=== PATIENT | female | born 1980 | race Caucasian/White ===

== ENCOUNTER 2017-02-19 08:49 | Outpatient (CLI) ==
[2016-04-09 19:28] VITALS: BMI 18.4
--- NOTE | 2017-02-19 10:58 | US ---
EXAM: Right breast ultrasound. History: Right breast palpable abnormality. Comparison: Bilateral diagnostic mammogram 02/19/2017 Technique: Multiple sonographic images through the right breast were obtained. Color duplex Dopple r was used to interrogate vascular flow. Findings: No masses, cysts or fluid collections identified. Impression: No sonographic evidence for malignancy. Recommend routine screening mammography at 42 y ears. BIRADS 2
--- NOTE | 2017-02-21 15:38 | MAMMO ---
EXAM: Bilateral digital diagnostic mammogram History: Right breast mass. Technique: MLO and CC views of bilateral breasts demonstrate heterogeneously dense breast parenchym a which can obscure small lesions. There are no dominant masses, no suspicious microcalcifications and no architectural distortions Impression: Although no mammographic abnormalities identified to correlate with the palpable event, recommend further evaluation with right breast ultrasound. BIRADS 0
== END 2017-02-19 08:50 ==
LOC: RAD 08:49
PROVIDERS: ATTEND Advanced Practice Midwife
DX: N63 Unspecified lump in breast (principal)

== ENCOUNTER 2017-05-23 11:26 | Emergency (ER) ==
[2017-05-23 11:34] VITALS: BP 109/74; TEMP 98.4; BMI 15.5
[2017-05-23 11:45] LABS: BILIRUBIN,URINE 1+ (NEGATIVE); KETONES,URINE Trace (NEGATIVE); LEUKOCYTE ESTERASE ,URINE Negative (NEGATIVE); NITRITE,URINE Positive (NEGATIVE); PH,URINE 5.5 (5-9); PROTEIN,URINE 1+ (NEGATIVE); URINE, BLOOD 2+ (NEGATIVE)
[2017-05-23 11:46] LABS: ADD URINE MICROSCOPIC YES
--- NOTE | 2017-05-23 11:53 | ED.PDOC ---
General ED Provider: Dr. KARUNA TRIPATHI JR Chief Complaint: Kidney Stone Stated Complaint: onset pain 2 days ago--pain to both sides posterior back-- urine is darker--hx kidney stone--8 yrs ago--sx similar[End]98.4 781 20 10 04/05 Time Seen by Physician: 11:53 Mode of Arrival: Walk-In Information Source: Patient Exam Limitations: No limitations Nursing and Triage Documentation Reviewed and Agree: No Review of Systems - Review Of Systems Constitutional: Reports: Malaise Eyes: Reports: No symptoms Ears, Nose, Mouth, Throat: Reports: No symptoms Respiratory: Reports: No symptoms Cardiac: Reports: No symptoms GI: Reports: No symptoms : Reports: Flank pain, Hematuria, Pain Musculoskeletal: Reports: Back pain, Muscle pain Skin: Reports: No symptoms Neurological: Reports: No symptoms Endocrine: Reports: No symptoms Hematologic/Lymphatic: Reports: No symptoms All Other Systems: Other Past Medical History - Past Medical History Previously Healthy: Yes Endocrine: Reports: None Cardiovascular: Reports: None Respiratory: Reports: None Hematological: Reports: None Gastrointestinal: Reports: None Genitourinary: Reports: None Neuro/Psych: Reports: None Musculoskeletal: Reports: None Cancer: Reports: None Last Menstrual Period: 1 month ago--has iud - Surgical History General Surgical History: Reports: None - Family History Family History: Reports: None - Social History Smoking Status: Former smoker Hx Substance Use: No Alcohol Screening: None Physical Exam - Physical Exam Appearance: Well-appearing, Thin Ill-appearing: Moderate Pain Distress: Moderate Eyes: MATILDE, EOMI, Conjunctiva clear ENT: Ears normal, Nose normal, Oropharynx normal Neck: Supple Respiratory: Airway patent, Breath sounds clear, Breath sounds equal, Respirations nonlabored Cardiovascular: RRR, Pulses normal, No rub, No murmur GI/: Soft, Nontender, No masses, Bowel sounds normal, No Organomegaly Musculoskeletal: Normal strength, ROM intact, No edema, No calf tenderness Skin: Warm, Dry, Normal color Neurological: Sensation intact, Motor intact, Reflexes intact, Cranial nerves intact, Alert, Oriented Psychiatric: Affect appropriate Critical Care Note - Critical Care Note Total Time (mins): 0 Course - Course Hematology/Chemistry: 05/23/17 11:50 05/23/17 11:50 Orders, Labs, Meds: Lab Review 05/23/17 05/23/17 11:40 11:50 WBC 6.69 RBC 4.16 L Hgb 12.5 Hct 36.8 L MCV 88.5 MCH 30.0 MCHC 34.0 RDW Coeff of [place] 12.5 Plt Count 217 Immature Gran % (Auto) 0.3 Neut % (Auto) 55.8 Lymph % (Auto) 34.7 Mckean % (Auto) 6.0 Eos % (Auto) 2.2 Baso % (Auto) 1.0 Immature Gran # (Auto) 0.0 Neut # 3.7 Lymph # 2.3 Mckean # 0.4 Eos # 0.2 Baso # 0.1 Sodium 142 Potassium 3.4 L Chloride 105 Carbon Dioxide 26 Anion Gap 14.4 BUN 10 Creatinine 0.74 Estimated GFR (MDRD) 89.00 BUN/Creatinine Ratio 13.51 Glucose 84 Calcium 9.5 Total Bilirubin 0.48 AST 10 L ALT 8 L Alkaline Phosphatase 63 Total Protein 6.3 L Albumin 3.9 Globulin 2.4 Albumin/Globulin Ratio 1.63 Amylase 27 Lipase 9 Urine Color Yellow Urine Clarity Clear Urine pH 5.5 Ur Specific [place] >=1.030 Urine Protein 1+ Urine Glucose (UA) Negative Urine Ketones Trace Urine Blood 2+ Urine Nitrite Positive Urine Bilirubin 1+ Urine Urobilinogen 1.0 Ur Leukocyte Esterase Negative Urine Microscopic RBC 5-10 Urine Microscopic WBC 5-10 Ur Squamous Epith Cells 5-10 Urine Bacteria 4+ Urine Mucus Trace Urine Test Negative H. pylori IgG Antibody Negative Orders Category Date Time Status Strain Urine [ED STRAIN URINE] .ONCE EMERGENCY 05/23/17 11:53 Active AMYLASE Stat LAB 05/23/17 11:50 Completed CBC W/ AUTO DIFF Stat LAB 05/23/17 11:50 Completed COMPREHENSIVE METABOLIC PANEL Stat LAB 05/23/17 11:50 Completed H. PYLORI SCREEN Stat LAB 05/23/17 11:50 Completed LIPASE Stat LAB 05/23/17 11:50 Completed UA [URINALYSIS C & S IF INDICATED] Stat LAB 05/23/17 11:40 Completed URINE CULTURE Stat LAB 05/23/17 11:40 Received URINE Stat LAB 05/23/17 11:[address] ABDOMEN/PELVIS WO CONTRAST Stat RADS 05/23/17 11:47 Completed Vital Signs: Temp Pulse Resp BP Pulse Ox 05/23/17 11:27 98.4 F 81 20 109/74 100 Departure - Departure Time of Disposition: 12:48 Disposition: HOME SELF-CARE Discharge Problem: Back pain Qualifiers: Back pain location: low back pain Chronicity: acute Back pain laterality: right Sciatica presence: without sciatica Qualifier Code: (M54.5) Low back pain Instructions: How to Strain Your Urine (ED) Condition: Good Pt referred to PMD for follow-up: Yes Additional Instructions: back strain- avoid lifting over 10 pounds for three days recheck PMD one week may follow with [facility] naprosyn and tylenol for pain do not mix MSAIDS(aspirin Advil Aleve) Prescriptions: Naproxen [Naprosyn] 500 mg PO Q12HR PRN #30 tablet PRN Reason: PAIN Allergies/Adverse Reactions: Allergies No Known Allergies Allergy (Verified 05/23/17 11:34) Home Medications: Ambulatory Orders Naproxen [Naprosyn] 500 mg PO Q12HR PRN #30 tablet 05/23/17
[2017-05-23 11:54] LABS: BACTERIA,URINE 4+ (NOT PRESENT)
[2017-05-23 11:55] LABS: URINE PREGNANCY INTERNAL QC INTERNAL QC VALID
[2017-05-23 12:00] LABS: BASOPHILS # (AUTO) 0.1 K/uL (0-0.2); EOSINOPHILS # (AUTO) 0.2 K/ul (0.0-0.7); EOSINOPHILS % (AUTO) 2.2 % (0.0-7.0); HEMATOCRIT 36.8 % (37.0-47.0); HEMOGLOBIN 12.5 g/dl (12.0-16.0); IMMATURE GRANULOCYTE % (AUTO) 0.3 % (0.0-5.0); LYMPHOCYTES # (AUTO) 2.3 K/uL (0.60-3.4); LYMPHOCYTES % (AUTO) 34.7 (10.0-50.0); MEAN CORPUSCULAR VOLUME 88.5 fl (81.0-99.0); MONOCYTES # (AUTO) 0.4 K/uL (0.4-2.0); NEUTROPHILS # (AUTO) 3.7 K/ul (2.0-6.9); NEUTROPHILS % (AUTO) 55.8; PLATELET COUNT 217 10^3/uL (140-440); RED BLOOD COUNT 4.16 10^6/ul (4.20-5.40); WHITE BLOOD COUNT 6.69 K/ul (4.6-10.2)
[2017-05-23 12:14] LABS: H. PYLORI ANTIBODY NEGATIVE (NEGATIVE); H.PYLORI INTERNAL QC INTERNAL QC VALID
[2017-05-23 12:22] LABS: ALBUMIN 3.9 g/dL (3.4-5.0); ALBUMIN/GLOBULIN RATIO 1.63; ANION GAP 14.4; BILIRUBIN,TOTAL 0.48 mg/dL (0.00-1.20); BUN/CREATININE RATIO 13.51; CALCIUM 9.5 mg/dL (8.2-10.2); CREATININE 0.74 mg/dL (0.60-1.30); POTASSIUM 3.4 mmol/L (3.5-5.10); TOTAL PROTEIN 6.3 g/dL (6.4-8.2)
--- NOTE | 2017-05-23 12:38 | CT ---
EXAM: CT of the abdomen pelvis without contrast History: Abdominal and flank pain, hematuria. Comparison: CT abdomen pelvis 01/15/2014 Technique: Multiplanar CT images through the abdomen pelvis were obtained without the administratio n of IV contrast Findings: Lung bases are free of consolidation. No acute osseous abnormalities. No discrete gallstones identified by CT. No focal liver or splenic lesions. 3 mm left renal calcul us. 1 mm punctate right renal calculus. Stable small right renal cyst. No hydronephrosis. No per inephric stranding. No peripancreatic inflammation. Adrenal glands are unremarkable. No bowel obs truction. No ureteral calculi. Scattered colonic stool. Bladder is not well distended. Intrauter ine device is again seen in place. No perirectal inflammation. The appendix is not dilated or infl marce. Impression: 1. No acute intra-abdominal or pelvic process. 2. Nonobstructing bilateral nephrolithiasis. 3. Stable small simple appearing right renal cyst.
== END 2017-05-23 13:11 | disposition home or self-care (01) ==
LOC: ED 11:26
DX: N39.0 Urinary tract infection, site not specified (principal); B96.20 Unspecified Escherichia coli [E. coli] as the cause of diseases classified elsewhere; R31.9 Hematuria, unspecified
CPT/HCPCS: 36415; 80053; 81001; 81025; 82150; 83690; 85025; 86677; 87086; 87186; 99283

== ENCOUNTER 2017-07-22 08:28 | Emergency (ER) ==
[2017-07-22 08:29] VITALS: BMI 15.5
[2017-07-22] MEDS ORDERED: DUONEB NEB STA (08:48)
[2017-07-22] MEDS ORDERED: PREDNISONE PO STA (08:48)
[2017-07-22] MEDS ORDERED: ZITHROMAX PO STA (08:48)
[2017-07-22 08:51] VITALS: BP 119/87; TEMP 98.1
--- NOTE | 2017-07-22 08:53 | ED.PDOC ---
General ED Provider: Dr. ANALISA GARZON Chief Complaint: Respiratory Complaint Stated Complaint: cough, wheez Time Seen by Physician: 09:00 Information Source: Patient Exam Limitations: No limitations Nursing and Triage Documentation Reviewed and Agree: Yes Review of Systems - Review Of Systems Constitutional: Reports: Malaise, Loss of appetite Eyes: Reports: No symptoms Ears, Nose, Mouth, Throat: Reports: No symptoms Respiratory: Reports: Cough, Wheezing Cardiac: Reports: No symptoms GI: Reports: No symptoms : Reports: No symptoms Musculoskeletal: Reports: No symptoms Skin: Reports: No symptoms Neurological: Reports: No symptoms Endocrine: Reports: No symptoms Hematologic/Lymphatic: Reports: No symptoms All Other Systems: Reviewed and Negative Past Medical History - Past Medical History Previously Healthy: Yes Endocrine: Reports: None Cardiovascular: Reports: None Respiratory: Reports: None Hematological: Reports: None Gastrointestinal: Reports: None Genitourinary: Reports: None Neuro/Psych: Reports: None Musculoskeletal: Reports: None Cancer: Reports: None Last Menstrual Period: last week - Surgical History General Surgical History: Reports: None - Family History Family History: Reports: None - Social History Smoking Status: Former smoker Hx Substance Use: No Alcohol Screening: None Physical Exam - Physical Exam Appearance: Well-appearing, No pain distress, Well-nourished Eyes: MATLIDE, EOMI, Conjunctiva clear ENT: Erythema Respiratory: Wheezes Cardiovascular: RRR, Pulses normal, No rub, No murmur GI/: Soft, Nontender, No masses, Bowel sounds normal, No Organomegaly Musculoskeletal: Normal strength, ROM intact, No edema, No calf tenderness Skin: Warm, Dry, Normal color Neurological: Sensation intact, Motor intact, Reflexes intact, Cranial nerves intact, Alert, Oriented Psychiatric: Affect appropriate, Mood appropriate Critical Care Note - Critical Care Note Total Time (mins): 0 Course - Course Orders, Labs, Meds: Orders Category Date Time Status NEBULIZER TREATMENT Stat CARDIO 07/22/17 08:49 Ordered URINE Stat LAB 07/22/17 08:49 Uncollected Azithromycin [Zithromax] MEDS 07/22/17 08:48 Discontinued 1,000 mg PO ONCE STA Ipratropium/Albuterol Neb [Duoneb] MEDS 07/22/17 08:48 Discontinued 1 vial NEB ONCE STA Prednisone MEDS 07/22/17 08:48 Discontinued 40 mg PO ONCE STA CHEST, 2 VIEWS PA & LAT Stat RADS 07/22/17 08:49 Ordered Medications Discontinued Medications Generic Name Dose Route Start Last Admin Trade Name Freq PRN Reason Stop Dose Admin Albuterol/Ipratropium 1 vial 07/22/17 08:48 Duoneb NEB 07/22/17 08:49 ONCE STA Azithromycin 1,000 mg 07/22/17 08:48 Zithromax PO 07/22/17 08:49 ONCE STA Prednisone 40 mg 07/22/17 08:48 Prednisone PO 07/22/17 08:49 ONCE STA Vital Signs: Temp Pulse Resp BP Pulse Ox 07/22/17 08:37 98.1 F 94 H 20 119/87 96 Departure - Departure Time of Disposition: 10:00 Disposition: HOME SELF-CARE Discharge Problem: Bronchitis Instructions: Acute Bronchitis (ED), Wheezing (ED), How Your Lungs Work (ED), Viral Syndrome (ED) Condition: Good Pt referred to PMD for follow-up: Yes Additional Instructions: Please call your Family Physician as soon as possible to schedule a follow-up appointment. Allergies/Adverse Reactions: Allergies No Known Allergies Allergy (Verified 07/22/17 08:43) Home Medications: Ambulatory Orders 1 [No Reported Medications] 07/22/17 Disposition Discussed With: Patient
[2017-07-22 09:06] LABS: URINE PREGNANCY INTERNAL QC INTERNAL QC VALID
--- NOTE | 2017-07-22 09:41 | DI ---
EXAM: CHEST FRONTAL AND LATERAL VIEWS HISTORY: Cough and wheezing. COMPARISON: None FINDINGS: Heart size and mediastinal contour within normal limits. Mild hyperinflation. No acute infiltrates. Normal vascularity with no pleural fluid or pneumothorax. The bony thorax has no acute finding. IMPRESSION: Mild hyperinflation. No acute infiltrates.
== END 2017-07-22 09:40 | disposition home or self-care (01) ==
LOC: ED 08:28
DX: J20.9 Acute bronchitis, unspecified (principal)
CPT/HCPCS: 81025; 94640; 99283